=== PATIENT | female | born 1980 | race Caucasian/White ===

== ENCOUNTER 2017-05-12 12:43 | Emergency (ER) | payer OTHER ==
[~2017-05-12] VITALS: Ht 162.6 cm; Wt 56.2 kg
[~2017-05-12 12:43] MED LIST: CAVAN-FOLATE D1 EACH; DICLOFENAC SODI50 MG PO; PEPCID40 MG PO; ZOFRAN4 MG PO
[2017-05-12] MEDS ORDERED: OSEL75CA PO (17:07)
[2017-05-12] MEDS ORDERED: TUSSI PRES-B L120 M1 PO (17:07)
== END 2017-05-12 18:03 | disposition home or self-care (01) ==
LOC: ER 12:43
DX: B34.9 Viral infection, unspecified (principal); M54.5 Low back pain

== ENCOUNTER 2017-10-31 11:36 | Emergency (ER) | payer OTHER ==
[~2017-10-31] VITALS: Ht 162.6 cm; Wt 54.0 kg
[~2017-10-31 11:36] MED LIST changes: +OSEL75CA PO; +TUSSI PRES-B L120 M1 PO
== END 2017-10-31 14:57 | disposition home or self-care (01) ==
LOC: ER 11:36
DX: R00.2 Palpitations (principal); J32.8 Other chronic sinusitis; Z33.1 Pregnant state, incidental

== ENCOUNTER 2017-11-10 21:12 | Emergency (ER) | payer OTHER ==
[~2017-11-10] VITALS: Ht 162.6 cm; Wt 54.4 kg
== END 2017-11-11 02:27 | disposition home or self-care (01) ==
LOC: ER 21:12
DX: O26.851 Spotting complicating pregnancy, first trimester (principal); Z34.81 Encounter for supervision of other normal pregnancy, first trimester

== ENCOUNTER → 2018-01-23 | Day surgery (SDC) | payer OTHER | END | disposition home or self-care (01) | LOC: CIR.AMB 05:48 | DX: O03.4 Incomplete spontaneous abortion without complication (principal) ==

== ENCOUNTER 2018-11-14 21:29 | Emergency (ER) | payer OTHER ==
[~2018-11-14] VITALS: Ht 162.6 cm; Wt 59.9 kg
== END 2018-11-15 05:17 | disposition home or self-care (01) ==
LOC: ER 21:29
DX: O26.892 Other specified pregnancy related conditions, second trimester (principal); R10.2 Pelvic and perineal pain; Z34.02 Encounter for supervision of normal first pregnancy, second trimester

== ENCOUNTER 2019-04-03 11:00 | Inpatient (IN) | payer OTHER ==
[~2019-04-03] VITALS: Ht 162.6 cm; Wt 5.0 kg
[2019-04-05] MEDS ORDERED: PRENATAL TABLE1 EAC1 PO (01:43)
== END 2019-04-18 15:44 | disposition home or self-care (01) | DRG 807 ==
LOC: LDR 04-16 08:04 → OB/GYN 04-16 08:04 → LDR 04-25 11:00 → OB/GYN 04-25 11:00
PROVIDERS: ADMIT Obstetrics & Gynecology
PROC: 10E0XZZ Delivery of Products of Conception, External Approach (ICD-10-PCS; principal; 2019-04-16)
PROC: 0HQ9XZZ Repair Perineum Skin, External Approach (ICD-10-PCS; 2019-04-16)
PROC: 10907ZC Drainage of Amniotic Fluid, Therapeutic from Products of Conception, Via Natural or Artificial Opening (ICD-10-PCS; 2019-04-16)
PROC: 4A1HXCZ Monitoring of Products of Conception, Cardiac Rate, External Approach (ICD-10-PCS; 2019-04-16)
DX: O70.0 First degree perineal laceration during delivery (principal); Z37.0 Single live birth; Z3A.38 38 weeks gestation of pregnancy; Z22.330 Carrier of Group B streptococcus

== ENCOUNTER 2019-04-05 01:07 | Outpatient (CLI) | payer OTHER ==
[2019-04-05] MEDS ORDERED: PRENATAL TABLE1 EAC1 PO (01:43)
== END 2019-04-05 13:47 | disposition home or self-care (01) ==
LOC: OBS/DEL 01:07
DX: O47.1 False labor at or after 37 completed weeks of gestation (principal)